=== PATIENT | male | born 1970 | race Caucasian/White ===

== ENCOUNTER 2024-10-26 22:13 | Emergency (ER) | payer OTHER, SELFPAY ==
[2024-10-26 22:20] VITALS: BP 188/111
[2024-10-26 22:35] LABS: % Basophils 0.5 % (0-2); % Eosinophils 0.3 % (0-6); % Immature Granulocytes 0.3 % (0-0.5); % Lymphocytes 21.8 % (20.5-51.1); % Monocytes 7.8 % (1.7-9.3); % Neutrophils 69.3 % (42.2-75.2); Absolute Lymphocytes 1.9 10^3/uL (1.2-3.4); Absolute Monocytes 0.7 10^3/uL (0.1-0.6); Absolute Neutrophils 5.9 10^3/uL (1.4-6.5); Hematocrit 42.8 % (39.0-52.0); Hemoglobin 15.4 g/dL (13.0-18.0); Mean Corpuscular Hgb 30.6 pg (27.0-31.0); Mean Corpuscular Volume 85.1 fL (80.0-94.0); Mean Platelet Volume 9.9 fL (7.4-10.4); Nucleated Red Blood Cells % 0 % (-); Platelet Count 168 10^3/uL (130-400); Red Blood Cell Count 5.03 10^6/uL (4.70-6.10); Red Cell Dist. Width 13.1 % (11.5-14.5); White Blood Cell Count 8.6 10^3/uL (4.8-10.8)
[2024-10-26 22:57] LABS: NT-proBNP 199 pg/ml
[2024-10-26 22:58] LABS: ALT (SGPT) 74 U/L (0-50); AST (SGOT) 39 U/L (17-59); Albumin 4.8 g/dl (3.5-5.0); Alkaline Phosphatase 67 U/L (38-126); Blood Urea Nitrogen 14 mg/dl (9-20); Calcium 9.7 mg/dl (8.4-10.2); Carbon Dioxide 29 mmol/L (22-30); Chloride 104 mmol/L (98-107); Glucose 104 mg/dl (70-99); Potassium 3.8 mmol/L (3.5-5.1); Sodium 142 mmol/L (135-145); Total Bilirubin 0.7 mg/dl (0.2-1.3); Total Protein 7.4 g/dl (6.3-8.2); eGFR > 60.00
[2024-10-26 23:38] VITALS: BMI 36.7
--- NOTE | 2024-10-26 23:52 | ED.GENMED ---
History of Present Illness
General
Chief Complaint: Swelling
Source: patient
Exam Limitations: none
Time Seen by Provider: 10/26/24 23:45
Nursing documentation reviewed up to this point in time: agreed with except (Pt denies chest pain)
History of Present Illness
History of Present Illness:
54 yo male with hx of HTN, presents for bilateral LE pain and swelling left > right and DEMARCO past 2 days. No recent travel, denies CP.
Past History
Past History
ED Past Medical History: HTN
ED Past Surgical History: Orthopedic
Social History
Tobacco: Former smoker
Alcohol: Occasional
Personal: (Seperated)
Living: with family
Employment: Employed (runs a [employer])
Review of Systems
Review of Systems
Allergies reviewed?: Yes
All Other Systems: ROS reviewed and negative except as documented in HPI and ROS
Constitutional: Denies fever or chills
Respiratory: Reports other (DEMARCO past 2 days)
Cardiac: Denies chest pain
ABD/GI: Denies abdominal pain, nausea, vomiting, diarrhea or anorexia
: Denies dysuria, frequency or difficulty voiding
Musculoskeletal: Reports edema (swelling both lower legs)
Skin: Reports no symptoms
Neurological: Reports no symptoms
Phy Exam
Physical Exam
Physical Exam:
GENERAL: No acute distress. A&Ox3.
CONSTITUTIONAL: Afebrile.
EYES: clear, conjunctivae normal
ENMT: moist mucus membranes, Pharynx nl, TMS normal
RESPIRATORY: Regular respirations, nonlabored, lungs clear.
CARDIOVASCULAR: Regular rate and rhythm, no murmurs, no rubs.
GI: Soft, nontender, normal BS
MUSCULOSKELETAL: Moves with ease. Well perfused. Bilateral lower extremity edema left greater than right. No calf tenderness. Anterior aspects of both lower legs are tender to palpate with faint erythema
SKIN: Warm, dry, pink
PSYCH: Normal mood and affect. Well kept, interactive and appropriate
NEUROLOGIC: Awake, alert and oriented. No focal neurological deficits
Scores
Heart Failure Risk
Heart Failure Risk Score: Not Applicable
Course
Orders/Labs/Results
Orders:
Orders
10/26/24 22:14
ECG [Electrocardiogram (*1)] Urgent
Reason for Study: Chest Pain
EKG- Treatment ONCE
10/26/24 22:30
Complete Blood Count/With Diff Urgent
Comprehensive Metabolic Panel Urgent
Pro-BNP [NT-proBNP] Urgent
Troponin I Urgent
Comment: ADD ON
10/27/24 00:00
US Periph Venous LOWER Ext Eugenio Urgent
Reason For Exam: swelling both, DEMARCO
10/27/24 00:30
CT Chest PE Study Urgent
Reason For Exam: DEMARCO leg swelling
10/27/24 00:44
Add On- LAB Urgent
Tests Added?: Troponin
10/27/24 01:37
Metoprolol [Lopressor] 5 mg IV NOW STA
10/27/24 02:08
Troponin I Urgent
Abnormal Lab Results
10/26/24
22:30
Absolute Monos (auto) 0.7 H 10^3/uL
(0.1-0.6)
Glucose 104 H mg/dl
(70-99)
ALT 74 H U/L
(0-50)
10/26/24 22:30
10/26/24 22:30
Vital Signs
Initial and Last Documented VS:
Initial Vital Signs
Temp Pulse Resp BP Pulse Ox
97.9 F 83 16 188/111 96
10/26/24 22:20 10/26/24 22:20 10/26/24 22:20 10/26/24 22:20 10/26/24 22:20
Last Documented Vital Signs
Temp Pulse Resp BP Pulse Ox
97.9 F 72 20 160/90 99
10/26/24 22:20 10/27/24 03:30 10/27/24 03:30 10/27/24 03:30 10/27/24 03:30
MDM/Problems Addressed
Differential Diagnosis Includes:
DVT, PE, renal insufficiency, CHF
Medication side effect (Naproxen)
MDM/Problems Addressed:
54 yo male with hx of HTN, presents for bilateral LE pain and swelling left > right and DEMARCO past 2 days. No recent travel, denies CP.
Afebrile, NAD
12:45 a.m.
CBC normal
CMP normal
BNP normal
US bilateral LE's neg for DVT
1:[address] angiogram: No PE, unremarkable
Pt states for past week he's been taking Naproxen twice daily for left ear pain.
This may be causing his edema
No DE, CHF or PE
BP elevated: Lopressor IV given
Case discussed with Dr. Kenyon who agrees with plan, he will assume care from this point: Troponin pending
Plan: Follow up with Cardiology (sent info to hotline)
Stop Naproxen
Check BP tomorrow and notify your doctor if it is still high
Chronic conditions affecting care: HTN
*Critical Care Note
Total Time (30-74mins, 75-104mins- exclusive of procedures): Not Applicable
ED Attending Note
-
Portions of this chart may have been created with voice recognition software.� Occasional wrong word or��sound alike� substitutions may have occurred due to the inherent limitations of voice recognition software.
Discharge Plan
Departure
Patient Disposition: Home (Routine Discharge)
Date of Disposition: 10/27/24
Time of Disposition: 03:37
Patient with high blood pressure during this ER visit?: Yes
Condition: Good
Discharge Problem:
Bilateral edema of lower extremity
Instructions: Swelling, *CBC Heart Failure Instructions, BLOOD PRESSURE
Prescriptions:
No Action
lisinopril-hydrochlorothiazide 20-25 mg Tablet
1 tab PO DAILY
montelukast 10 mg Tablet
10 mg PO DAILY
atenolol 50 mg Tablet
50 mg PO DAILY
Referrals:
Juan Madden MD [Active] - Keep scheduled appt
Josie Frias MD [Family Provider] -
Activity Restrictions/Additional Instructions:
As we discussed, nothing worrisome in your workup here today.
Your Blood pressure is high, you received an IV dose of Lopressor 5 mg.
One of the side effects of naproxen for some people is edema. See if the swelling goes away since your last dose was today.
[facility] Someone will be contacting you in the nex 2 days for appointment for a more thorough cardiac workup.
Interventions
Interventions:
*Risk Screen - Suicide Last Done: 10/26/24 22:23
*General Assessment Last Done: 10/26/24 22:23
*Neglect/Abuse Screening Last Done: 10/26/24 22:23
*ED- Fall Risk Assessment Last Done: 10/26/24 23:40
*ED COVID-19 Vaccine History Last Done: 10/26/24 23:40
*Nursing Disposition Last Done: 10/27/24 03:30
ED- Cardiac Assessment Last Done: 10/26/24 23:49
ED- Pulmonary Assessment Last Done: 10/26/24 23:49
ED-Skin Assessment Last Done: 10/26/24 23:49
Discharge Date and Time
Discharge Date/Time: 10/27/24 03:39
Print Language: SWISS
[2024-10-27 01:35] VITALS: BP 160/110
[2024-10-27] MEDS: LOPRESSOR 5 MG IV (01:39)
[2024-10-27 01:50] LABS: Troponin I 0.023 ng/ml
[2024-10-27 02:10] VITALS: BP 160/110
[2024-10-27 02:47] LABS: Troponin I 0.024 ng/ml
[2024-10-27 03:16] VITALS: BP 160/90
[2024-10-27 03:30] VITALS: BP 160/90
== END 2024-10-27 03:39 | disposition home or self-care (01) ==
LOC: EMR 22:13
PROVIDERS: Emergency Medicine; EMERGENCY PHYSICIAN Student in an Organized Health Care Education/Training Program; FAMILY PHYSICIAN Student in an Organized Health Care Education/Training Program
DX: R60.0 Localized edema (principal); I10 Essential (primary) hypertension; Z87.891 Personal history of nicotine dependence
CPT/HCPCS: 99284; 96374; 71275; 80053; 83880; 84484; 85025; 93005; 93970; Q9967